=== PATIENT | female | born 1955 | race Caucasian/White ===

== ENCOUNTER 2017-03-23 17:34 | Emergency (ER) | payer OTHER ==
[~2017-03-23] VITALS: Ht 157.5 cm; Wt 45.5 kg
[2017-03-23] MEDS ORDERED: CefTRIAXone SODIUM 1 GM/VIAL IM ONE (18:15)
[2017-03-23] MEDS ORDERED: LIDOCAINE HCL/PF 1% 2 ML VIAL IM ONE (18:15)
[2017-03-23 18:56] VITALS: BP 129/64
== END 2017-03-23 18:58 | disposition home or self-care (01) ==
LOC: EMS 17:36
DX: L02.211 Cutaneous abscess of abdominal wall (principal); L03.311 Cellulitis of abdominal wall; L98.9 Disorder of the skin and subcutaneous tissue, unspecified; I10 Essential (primary) hypertension; F17.210 Nicotine dependence, cigarettes, uncomplicated
CPT/HCPCS: 96372; 99284; J0696; J3490

== ENCOUNTER 2020-06-16 17:00 | Emergency (ER) | payer OTHER ==
[~2020-06-16] VITALS: Ht 167.6 cm; Wt 100.0 kg
[2020-06-16] MEDS ORDERED: SULFAMETHOX/TRIMETH DS 800-160 MG/TABLET PO ONE (20:15)
[2020-06-16] MEDS ORDERED: CEPHALEXIN MONOHYDRATE 500 MG CAPSULE PO ONE (20:15)
[2020-06-16] MEDS ORDERED: CefTRIAXone 1 GM/DEXTROSE 50 ML IV ONE (20:15)
[2020-06-16 20:50] VITALS: BP 173/76
== END 2020-06-16 21:34 | disposition home or self-care (01) ==
LOC: EMS 17:04
DX: L03.116 Cellulitis of left lower limb (principal); I10 Essential (primary) hypertension; F17.210 Nicotine dependence, cigarettes, uncomplicated
CPT/HCPCS: 73590; 73610; 93971; 96365; 99284; J0696

== ENCOUNTER 2020-12-30 13:53 | Emergency (ER) | payer MEDICARE, OTHER ==
[~2020-12-30] VITALS: Ht 157.5 cm; Wt 105.0 kg
[2020-12-30] MEDS ORDERED: AZITHROMYCIN 500 MG TABLET PO ONE (16:00)
[2020-12-30] MEDS ORDERED: LIDOCAINE/PF 1% 2 ML VIAL IM ONE (16:00)
[2020-12-30] MEDS ORDERED: CefTRIAXone SODIUM 1 GM/VIAL IM ONE (16:00)
[2020-12-30] MEDS ORDERED: LIDOCAINE 5% TRANSDERMAL PATCH TD ONE (17:00)
[2020-12-30] MEDS ORDERED: KETOROLAC TROMETHAMINE 30 MG/ML VIAL IM ONE (17:00)
[2020-12-30 18:12] VITALS: BP 149/89
== END 2020-12-30 18:15 | disposition home or self-care (01) ==
LOC: EMS 13:56
DX: A64 Unspecified sexually transmitted disease (principal); G89.29 Other chronic pain; M54.9 Dorsalgia, unspecified; I10 Essential (primary) hypertension
CPT/HCPCS: 87210; 87491; 87591; 96372; 99285; A9575; J0696; J1885; J3490

== ENCOUNTER 2021-03-17 16:15 | Emergency (ER) | payer MEDICARE, OTHER ==
[~2021-03-17] VITALS: Ht 160 cm; Wt 113.6 kg
[2021-03-17 17:57] LABS: BASOPHILS % (AUTO) 0.7 % (0.0-2.0); EOSINOPHILS % (AUTO) 3.9 % (1.0-6.0); HEMATOCRIT 40.1 % (36-46); HEMOGLOBIN 13.2 g/dL (12.0-16.0); LYMPHOCYTES # (AUTO) 2.1 K/uL (1.0-4.8); LYMPHOCYTES % (AUTO) 18.7 % (22.0-44.0); MEAN CORPUSCULAR HEMOGLOBIN 27.6 pg (26.0-34.0); MEAN CORPUSCULAR HGB CONC 32.9 G/dL (31.0-37.0); MEAN CORPUSCULAR VOLUME 84 fL (80-100); MONOCYTES # (AUTO) 0.6 K/uL (0.1-1.0); MONOCYTES % (AUTO) 5.3 % (2.0-9.0); NEUTROPHILS # (AUTO) 7.9 K/uL (1.8-7.7); NEUTROPHILS % (AUTO) 71.4 % (40.0-70.0); PLATELET COUNT (AUTO) 325 K/uL (150-450); RED BLOOD CELL COUNT(AUTO) 4.79 MIL/uL (4.00-5.20); RED CELL DISTRIBUTION WIDTH 15.5 % (11.5-14.5)
[2021-03-17 18:04] LABS: CALCIUM, TOTAL 8.7 mg/dL (8.8-10.5); CREATININE 1.77 mg/dL (0.60-1.30); POTASSIUM 3.3 mmol/L (3.5-5.1)
[2021-03-17 18:12] LABS: ALBUMIN 3.3 g/dL (3.4-5.0); BILIRUBIN,TOTAL 0.3 mg/dL (0.1-1.0); TOTAL PROTEIN, SERUM 7.1 g/dL (6.4-8.2)
[2021-03-17 19:13] VITALS: BP 138/96
== END 2021-03-17 19:27 | disposition home or self-care (01) ==
LOC: EMS 16:18
DX: L03.116 Cellulitis of left lower limb (principal); E87.6 Hypokalemia; M71.30 Other bursal cyst, unspecified site; I10 Essential (primary) hypertension; F17.210 Nicotine dependence, cigarettes, uncomplicated
CPT/HCPCS: 80053; 85025; 85379; 93971; 99284